=== PATIENT | female | born 1950 | race Caucasian/White ===

== ENCOUNTER 2018-02-26 08:05 | Outpatient (CLI) | payer MEDICARE, BC ==
--- NOTE | 2018-02-26 11:17 | CT ---
CT ABDOMEN AND PELVIS AFTER GI CONTRAST: HISTORY: Lower abdominal pain. Mucus in stool. Diarrhea. COMPARISON: 08/10/2012 TECHNIQUE: No IV contrast was utilized. FINDINGS: There is mild bibasilar atelectasis, predominantly in the region of the lingula and right middle lobe . Post cholecystectomy changes are noted. The opacified bowel demonstrates a normal CT appearance. A small amount of retained fecal material i s seen throughout the colon. Lack of intravenous contrast does limit the sensitivity for evaluation of the parenchymal organs; how ever, the liver, spleen, pancreas, bilateral adrenal glands, kidneys, and partially distended urinary bladder demonstrate a grossly normal, nonenhanced CT appearance. There is no renal or ureteral calculi seen bilaterally, and there is no hydronephrosis. Minimal vascular calcifications are seen in the abdominal aorta and involving the iliac arteries. The uterus is not visualized, probably related to a hysterectomy. The opacified small bowel is normal in caliber. There is a small, fat containing umbilical hernia ag ain noted. Mild degenerative changes are seen in the lower lumbar spine. The liver is enlarged in craniocaudal dimensions, measuring 21 cm; however, this is stable from the p rior study in 2012 and may be related to a normal variant for the patient. The appendix is not visualized on this examination, but there are no secondary signs to suggest appen dicitis. IMPRESSION: 1. No renal or ureteral calculi are seen bilaterally. 2. Post cholecystectomy changes. 3. Hysterectomy. 4. Small fat-containing umbilical hernia. POS: [facility]
== END 2018-02-26 08:06 | disposition home or self-care (01) ==
LOC: CT 08:05
PROVIDERS: ATTEND Family Medicine
DX: R19.7 Diarrhea, unspecified (principal); K42.9 Umbilical hernia without obstruction or gangrene; Z90.710 Acquired absence of both cervix and uterus; Z90.49 Acquired absence of other specified parts of digestive tract
CPT/HCPCS: 74176

== ENCOUNTER 2018-10-15 11:16 | Outpatient (CLI) | payer MEDICARE, BC ==
--- NOTE | 2018-11-11 14:40 | MMO ---
Bilateral MAMMO Bilat Screen [facility]. CLINICAL HISTORY: Patient is 68 years old and is seen for screening. The patient has the following family history of breast cancer: aunt. The patient has no personal history of cancer. VIEWS: The views performed were: bilateral craniocaudal and bilateral mediolateral oblique. FILMS COMPARED: The present examination has been compared to prior imaging studies performed at [facility] on 09/06/2013, 12/19/2014, 01/03/2016 and 08/07/2017. This study has been interpreted with the assistance of computer-aided detection. MAMMOGRAM FINDINGS: There are scattered fibroglandular densities. There are stable benign appearing calcifications seen in both breasts. There are no suspicious masses, suspicious calcifications, or new areas of architectural distortion. IMPRESSION: THERE IS NO MAMMOGRAPHIC EVIDENCE OF MALIGNANCY. A ROUTINE FOLLOW-UP MAMMOGRAM IN 1 YEAR IS RECOMMENDED. ACR BI-RADS Category 2 - Benign finding MAMMOGRAPHY NOTE: 1. A negative mammogram report should not delay a biopsy if a dominant of clinically suspicious mass is present. 2. Approximately 10% to 15% of breast cancers are not detected by mammography. 3. Adenosis and dense breasts may obscure an underlying neoplasm.
== END 2018-10-15 11:17 | disposition home or self-care (01) ==
LOC: SCSMAMMO 11:16
PROVIDERS: ATTEND Family Medicine
DX: Z12.31 Encounter for screening mammogram for malignant neoplasm of breast (principal); Z80.3 Family history of malignant neoplasm of breast
CPT/HCPCS: 77067

== ENCOUNTER 2018-12-24 07:41 | Outpatient (CLI) | payer MEDICARE, BC ==
--- NOTE | 2018-12-24 09:26 | BD ---
DEXA BONE DENSITY STUDY: HISTORY: Postmenopausal. FINDINGS: Lumbar Spine: BMD (g/cm2) L1 0.807 T-Score: -1.7 L2 0.815 T-Score: -1.9 L3 0.737 T-Score: -3.2 L4 0.646 T-Score: -3.8 L1-L4 0.747 T-Score: -2.7 Femoral Neck: 0.648 T-Score: -1.8 Total Femur: 0.918 T-Score: -0.2 Impression: Osteopenia of the left femoral neck and osteoporosis of the lumbar spine. POS: [facility]
== END 2018-12-24 07:42 | disposition home or self-care (01) ==
LOC: BICMAMMO 07:41
PROVIDERS: ATTEND Family Medicine
DX: Z78.0 Asymptomatic menopausal state (principal); M85.852 Other specified disorders of bone density and structure, left thigh
CPT/HCPCS: 77080

== ENCOUNTER 2019-10-06 08:26 | Outpatient (CLI) | payer MEDICARE, BC ==
--- NOTE | 2019-10-06 08:55 | CT ---
Head CT without contrast 10/06/2019: COMPARISON: 10/23/2016 HISTORY: Evaluate intracranial lesion noted on prior imaging TECHNIQUE: Axial CT imaging at 5 mm intervals from vertex through skull base without contrast FINDINGS: The prior examination demonstrated a 6 x 7 mm colloid cyst which is less conspicuous than o n the prior examination, now measuring approximately 5 x 5 mm. There is mild polypoid mucosal thickening involving the maxillary sinus on the left. Imaged paranasal sinuses and mastoid air cells appear otherwise unremarkable. There is no intracranial hemorrhage, midline shift, or mass effect. No ventriculomegaly is noted. Mil d scattered hypodensity within the white matter noted on the left, stable, suggesting mild small vessel disease. IMPRESSION: Hyperdense lesion in the region of the foramen of [place]ro suggesting a 5 mm colloid cyst, s maller than on the prior examination. No ventricular enlargement. No new findings.
== END 2019-10-06 08:27 | disposition home or self-care (01) ==
LOC: TBSIIMAG 08:26
PROVIDERS: ATTEND Neurological Surgery
DX: G93.0 Cerebral cysts (principal)
CPT/HCPCS: 70450

== ENCOUNTER 2020-01-18 08:34 | Outpatient (CLI) | payer MEDICARE, BC ==
--- NOTE | 2020-01-18 08:54 | BD ---
EXAM: DEXA bone density examination HISTORY: 70-year-old postmenopausal female for screening COMPARISON: 12/24/2018 FINDINGS: L1--bone mineral density 0.881 g/sq cm; T score -1.0 L2--bone mineral density 0.917 g/sq cm; T score -1.0 L3--bone mineral density 0.764 g/sq cm; T score -2.9 L4--bone mineral density 0.722 g/sq cm; T score -3.1 Total L1-L4--bone mineral density 0.810 g/sq cm; T score -2.2 Left femoral neck--bone mineral density0.724; T score -1.1 Total proximal left femur--bone mineral density 0.931; T score -0.1 IMPRESSION: Osteopenia. When compared to the prior examination, the bone density in the spine is incr eased approximately 8.5% and the bone density in the hip has not changed significantly.
== END 2020-01-18 08:35 | disposition home or self-care (01) ==
LOC: BICMAMMO 08:34
PROVIDERS: ATTEND Internal Medicine Rheumatology
DX: M81.0 Age-related osteoporosis without current pathological fracture (principal); M85.89 Other specified disorders of bone density and structure, multiple sites
CPT/HCPCS: 77080

== ENCOUNTER 2021-01-21 13:09 | Outpatient (CLI) | payer MEDICARE, BC | END 2021-01-21 13:10 | disposition home or self-care (01) | LOC: BICMAMMO 13:09 | PROVIDERS: ATTEND Internal Medicine Rheumatology | DX: M81.0 Age-related osteoporosis without current pathological fracture (principal); M85.851 Other specified disorders of bone density and structure, right thigh; M85.852 Other specified disorders of bone density and structure, left thigh | CPT/HCPCS: 77080 ==

== ENCOUNTER 2022-02-04 08:49 | Outpatient (CLI) | payer MEDICARE | END 2022-02-04 08:50 | disposition home or self-care (01) | LOC: BICMAMMO 08:49 | PROVIDERS: ATTEND Internal Medicine Rheumatology | DX: Z13.820 Encounter for screening for osteoporosis (principal); M85.89 Other specified disorders of bone density and structure, multiple sites | CPT/HCPCS: 77080 ==

== ENCOUNTER 2025-06-27 11:10 | Outpatient (CLI) | payer BC | END 2025-06-27 11:11 | disposition home or self-care (01) | LOC: SCSRAD 11:10 | PROVIDERS: ATTEND Family Medicine | DX: M54.50 Low back pain, unspecified (principal); M47.816 Spondylosis without myelopathy or radiculopathy, lumbar region; M47.817 Spondylosis without myelopathy or radiculopathy, lumbosacral region; M43.16 Spondylolisthesis, lumbar region; M43.17 Spondylolisthesis, lumbosacral region | CPT/HCPCS: 72100; 72220 ==